=== PATIENT | female | born 1940 | race Caucasian/White ===

== ENCOUNTER → 2017-09-30 | Outpatient (CLI) | payer OTHER | END | disposition home or self-care (01) | LOC: CVU 09:30 → EDSTATUS 10:00 | PROVIDERS: ATTEND Internal Medicine Cardiovascular Disease | DX: I08.0 Rheumatic disorders of both mitral and aortic valves (principal) | CPT/HCPCS: 93306 ==

== ENCOUNTER → 2018-09-01 | Outpatient (CLI) | payer OTHER | END | disposition home or self-care (01) | LOC: CFH 14:55 | PROVIDERS: ATTEND Internal Medicine Cardiovascular Disease | DX: I34.8 Other nonrheumatic mitral valve disorders (principal); I35.8 Other nonrheumatic aortic valve disorders; Z87.891 Personal history of nicotine dependence | CPT/HCPCS: 93306 ==

== ENCOUNTER → 2020-09-25 | Outpatient (CLI) | payer OTHER | END | disposition home or self-care (01) | LOC: CFH 08:24 | PROVIDERS: ATTEND Internal Medicine Cardiovascular Disease | DX: I08.0 Rheumatic disorders of both mitral and aortic valves (principal) | CPT/HCPCS: 93306 ==

== ENCOUNTER 2020-12-12 10:33 | Day surgery (SDC) | payer OTHER ==
[~2020-12-12] VITALS: Ht 157.5 cm; Wt 59.1 kg
[2020-12-12] MEDS ORDERED: L.AC1CAP6 PO (11:01)
[2020-12-12 11:14] VITALS: BP 153/84
[2020-12-12] MEDS ORDERED: [UNRECOGNIZED DRUG - OTHER] OP (11:20)
[2020-12-12] MEDS ORDERED: collagen (11:20)
[2020-12-12] MEDS ORDERED: [UNRECOGNIZED DRUG - OTHER] PO (11:20)
[2020-12-12] MEDS ORDERED: Vitamin C PO (11:22)
[2020-12-12] MEDS ORDERED: LUTEIN PO (11:22)
[2020-12-12] MEDS ORDERED: [UNRECOGNIZED DRUG - OTHER] PO (11:22)
[2020-12-12] MEDS ORDERED: Collagen PO (11:22)
[2020-12-12] MEDS ORDERED: NAPR220C2 PO (11:22)
[2020-12-12] MEDS ORDERED: Vitamin B12 PO (11:23)
[2020-12-12 11:39] LABS: BASOPHILS % (AUTO) 1 % (0-1); EOSINOPHILS % (AUTO) 1 % (1-7); LYMPHOCYTES % (AUTO) 19 % (22-44); MEAN CORPUSCULAR HEMOGLOBIN 31.9 pg (27.0-34.8); MEAN CORPUSCULAR HGB CONC 34.3 g/dL (32.4-35.8); MEAN PLATELET VOLUME 7.8 fL (7.4-10.4); MONOCYTES % (AUTO) 7 % (2-9); NEUTROPHILS % (AUTO) 72 % (42-75); PLATELET COUNT 327 x10^3/uL (130-400); RED CELL DISTRIBUTION WIDTH 13.4 % (9.6-15.2)
[2020-12-12 11:48] LABS: MD NO
[2020-12-12 11:50] LABS: ANION GAP 7 mmol/L (5-15); CALCIUM 8.9 mg/dL (8.5-10.1); CHLORIDE 106 mmol/L (98-107)
[2020-12-12] MEDS ORDERED: MIDAZOLAM 1 MG/ML, 5ML ONE (11:55)
[2020-12-12] MEDS ORDERED: FENTANYL PF 100 MCG/2ML ONE (11:55)
[2020-12-12] MEDS ORDERED: VERAPAMIL 2.5 MG/ML, 2ML ONE (11:56)
[2020-12-12] MEDS ORDERED: BIVALIRUDIN 250 MG ONE (11:56)
[2020-12-12] MEDS ORDERED: HEPARIN 1,000 UNITS/ML, 10ML ONE (11:56)
[2020-12-12] MEDS ORDERED: LIDOCAINE-MPF 1%, 5ML ONE (11:56)
[2020-12-12] MEDS ORDERED: SODIUM CHLORIDE 0.9% 1,000 ML IV SCH (12:00)
== END 2020-12-12 16:49 | disposition home or self-care (01) ==
LOC: CACL 10:33
PROVIDERS: ATTEND Internal Medicine Cardiovascular Disease
DX: I35.0 Nonrheumatic aortic (valve) stenosis (principal); I25.10 Atherosclerotic heart disease of native coronary artery without angina pectoris; D47.3 Essential (hemorrhagic) thrombocythemia; Z79.899 Other long term (current) drug therapy
CPT/HCPCS: 36415; 80048; 85025; 93458; 99156; 99157; C1769; C1894; J1644; J2250; J3010; Q9967; J0583

== ENCOUNTER → 2021-01-10 | Outpatient (CLI) | payer OTHER ==
[~2021-01-10] MED LIST: Collagen PO; L.AC1CAP6 PO; LUTEIN PO; METOPROLOL 1 MG/ML, 5ML ONE; NAPR220C2 PO; VISIPAQUE 320 MG/ML, 150ML BOTTLE ONE; Vitamin B12 PO; Vitamin C PO; [UNRECOGNIZED DRUG - OTHER] OP; [UNRECOGNIZED DRUG - OTHER] PO; [UNRECOGNIZED DRUG - OTHER] PO; collagen
== END | disposition home or self-care (01) ==
LOC: CVU 09:35
PROVIDERS: ATTEND Internal Medicine Cardiovascular Disease
DX: Z01.810 Encounter for preprocedural cardiovascular examination (principal); I65.23 Occlusion and stenosis of bilateral carotid arteries; K57.30 Diverticulosis of large intestine without perforation or abscess without bleeding; I25.10 Atherosclerotic heart disease of native coronary artery without angina pectoris; R06.02 Shortness of breath; I35.0 Nonrheumatic aortic (valve) stenosis; J84.10 Pulmonary fibrosis, unspecified; I70.0 Atherosclerosis of aorta; Q25.46 Tortuous aortic arch
CPT/HCPCS: 71275; 74174; 93880; Q9967

== ENCOUNTER → 2021-02-01 | Outpatient (CLI) | payer OTHER ==
[~2021-02-01] MED LIST changes: -METOPROLOL 1 MG/ML, 5ML ONE; -VISIPAQUE 320 MG/ML, 150ML BOTTLE ONE
== END | disposition home or self-care (01) ==
LOC: STAR 09:23
PROVIDERS: ATTEND Anesthesiology
DX: Z20.822 Contact with and (suspected) exposure to COVID-19 (principal)
CPT/HCPCS: U0003

== ENCOUNTER 2021-02-06 11:15 | Inpatient (IN) | payer OTHER ==
[~2021-02-06] VITALS: Ht 157.5 cm; Wt 58.2 kg
[2021-02-06 11:52] VITALS: BP 149/81
[2021-02-06 12:18] LABS: BASOPHILS % (AUTO) 1 % (0-1); EOSINOPHILS % (AUTO) 2 % (1-7); LYMPHOCYTES % (AUTO) 16 % (22-44); MD NO; MEAN CORPUSCULAR HEMOGLOBIN 32.1 pg (27.0-34.8); MEAN CORPUSCULAR HGB CONC 33.9 g/dL (32.4-35.8); MEAN PLATELET VOLUME 7.6 fL (7.4-10.4); MONOCYTES % (AUTO) 7 % (2-9); NEUTROPHILS % (AUTO) 75 % (42-75); PLATELET COUNT 312 x10^3/uL (130-400); RED BLOOD COUNT 4.71 x10^6/uL (3.82-5.3); RED CELL DISTRIBUTION WIDTH 13.4 % (9.6-15.2)
[2021-02-06] MEDS ORDERED: BIVALIRUDIN 250 MG ONE (12:26)
[2021-02-06] MEDS ORDERED: TICAGRELOR 90 MG TABLET ONE (12:26)
[2021-02-06 12:27] LABS: ANION GAP 7 mmol/L (5-15); CHLORIDE 106 mmol/L (98-107); CREATININE 0.88 mg/dL (0.55-1.02)
[2021-02-06] MEDS ORDERED: LIDOCAINE 1%, 20ML ONE (12:27)
[2021-02-06] MEDS ORDERED: HEPARIN 1,000 UNITS/ML, 10ML ONE (12:27)
[2021-02-06] MEDS ORDERED: ASPIRIN 325 MG TABLET EC ONE (12:47)
[2021-02-06] MEDS ORDERED: PROPOFOL 50 ML ONE (12:47)
[2021-02-06] MEDS ORDERED: FENTANYL PF 250 MCG/5ML ONE (12:47)
[2021-02-06] MEDS ORDERED: ONDANSETRON 2MG/ML, 2ML ONE (13:44)
[2021-02-06] MEDS ORDERED: ROCURONIUM 10MG/ML,5ML ONE (13:44)
[2021-02-06] MEDS ORDERED: SUCCINYLCHOLINE 20 MG/ML, 10ML ONE (13:44)
[2021-02-06] MEDS ORDERED: BIVALIRUDIN 250 MG in SODIUM CHLORIDE 0.9% 50 ML IV SCH (15:30)
[2021-02-06] MEDS ORDERED: SODIUM CHLORIDE 0.9% 1,000 ML IV SCH (15:30)
[2021-02-06] MEDS ORDERED: NAPROXEN 250 MG TABLET PO PRN (15:30)
[2021-02-06] MEDS ORDERED: hydrALAzine 20 MG/ML, 1ML ONE (16:07)
[2021-02-06] MEDS ORDERED: hydrALAzine 20 MG/ML, 1ML IV PRN (16:30)
[2021-02-06 17:20] VITALS: BP 130/83
[2021-02-06 19:05] VITALS: BP 128/76
[2021-02-06] MEDS: TICAGRELOR 90 MG TABLET PO SCH (20:25)
[2021-02-06 21:41] LABS: TROPONIN I 0.784 ng/mL (0.000-0.045)
[2021-02-06 21:50] VITALS: BP 156/82
[2021-02-07 01:00] VITALS: BP 136/72
[2021-02-07 06:55] LABS: ANION GAP 8 mmol/L (5-15); CALCIUM 8.5 mg/dL (8.5-10.1); CHLORIDE 104 mmol/L (98-107); CREATININE 0.76 mg/dL (0.55-1.02)
[2021-02-07 07:05] VITALS: BP 145/70
[2021-02-07] MEDS: TICAGRELOR 90 MG TABLET PO SCH (08:52)
[2021-02-07] MEDS ORDERED: METOPROLOL SUCCINATE 25 MG TAB.ER.24H PO SCH (09:00)
[2021-02-07] MEDS ORDERED: ASPIRIN 81 MG TABLET EC PO SCH (09:00)
[2021-02-07] MEDS ORDERED: METO25TA91 PO (12:19)
[2021-02-07] MEDS ORDERED: ASPI81TA45 PO (12:19)
[2021-02-07] MEDS ORDERED: ATOR-2 PO (12:19)
[2021-02-07] MEDS ORDERED: TICA90TA PO (12:19)
[2021-02-07] MEDS ORDERED: ATORVASTATIN 80 MG TABLET PO SCH (21:00)
== END 2021-02-07 14:14 | disposition home or self-care (01) | DRG 215 ==
LOC: CACL 11:15 → ORIP 15:12 → 5SO 16:58 → DCLOUNGE 02-07 14:05
PROVIDERS: ADMIT Internal Medicine Cardiovascular Disease; ATTEND Internal Medicine Cardiovascular Disease
PROC: B2111ZZ Fluoroscopy of Multiple Coronary Arteries using Low Osmolar Contrast (ICD-10-PCS; 2021-02-06)
PROC: 02HA3RJ Insertion of Short-term External Heart Assist System into Heart, Intraoperative, Percutaneous Approach (ICD-10-PCS; 2021-02-06)
PROC: 5A0221D Assistance with Cardiac Output using Impeller Pump, Continuous (ICD-10-PCS; 2021-02-06)
PROC: B2131ZZ Fluoroscopy of Multiple Coronary Artery Bypass Grafts using Low Osmolar Contrast (ICD-10-PCS; 2021-02-06)
PROC: 027035Z Dilation of Coronary Artery, One Artery with Two Drug-eluting Intraluminal Devices, Percutaneous Approach (ICD-10-PCS; principal; 2021-02-06 13:30)
DX: I25.10 Atherosclerotic heart disease of native coronary artery without angina pectoris (principal); I50.30 Unspecified diastolic (congestive) heart failure; I35.0 Nonrheumatic aortic (valve) stenosis; S30.1XXA Contusion of abdominal wall, initial encounter; X58.XXXA Exposure to other specified factors, initial encounter; E78.5 Hyperlipidemia, unspecified; I11.0 Hypertensive heart disease with heart failure; Y93.89 Activity, other specified; Y92.89 Other specified places as the place of occurrence of the external cause; Y99.8 Other external cause status; Z95.1 Presence of aortocoronary bypass graft; Z95.2 Presence of prosthetic heart valve
CPT/HCPCS: 36415; J3490; 33990; 80048; 84484; 85025; 92978; 93005; 93454; C1753; C1760; C1769; C1894; C9600; G0378; J0583; J1644; J2405; J2704; J3010; C1725; C1874; C1887; J0330; J0360; Q9967

== ENCOUNTER 2021-02-20 08:18 | Inpatient (IN) | payer OTHER ==
[~2021-02-20] VITALS: Ht 157.5 cm; Wt 61.2 kg
[~2021-02-20 08:18] MED LIST changes: +ASPI81TA45 PO; +ATOR-2 PO; +METO25TA91 PO; +TICA90TA PO
[2021-02-20 08:50] VITALS: BP 136/77
[2021-02-20] MEDS ORDERED: SODIUM CHLORIDE 0.9% 1,000 ML IV ONE (09:00)
[2021-02-20] MEDS: PLEASE ENTER HEIGHT AND WEIGHT MC SCH ×3 (09:00→23:56)
[2021-02-20] MEDS ORDERED: ONDANSETRON 2MG/ML, 2ML IVPush PRN (09:00)
[2021-02-20 09:17] LABS: BASOPHILS % (AUTO) 1 % (0-1); EOSINOPHILS % (AUTO) 1 % (1-7); LYMPHOCYTES % (AUTO) 15 % (22-44); MEAN CORPUSCULAR HEMOGLOBIN 31.9 pg (27.0-34.8); MEAN PLATELET VOLUME 7.5 fL (7.4-10.4); MONOCYTES % (AUTO) 7 % (2-9); NEUTROPHILS % (AUTO) 77 % (42-75); PLATELET COUNT 420 x10^3/uL (130-400); RED BLOOD COUNT 4.62 x10^6/uL (3.82-5.3); RED CELL DISTRIBUTION WIDTH 13.4 % (9.6-15.2)
[2021-02-20 09:18] LABS: MD NO
[2021-02-20 09:22] LABS: ALANINE AMINOTRANSFERASE 42 U/L (12-78); ALBUMIN 4.2 g/dL (3.4-5.0); ANION GAP 7 mmol/L (5-15); CHLORIDE 103 mmol/L (98-107); CREATININE 0.89 mg/dL (0.55-1.02)
[2021-02-20 09:25] LABS: ALKALINE PHOSPHATASE 82 U/L (45-117); BILIRUBIN,TOTAL 0.7 mg/dL (0.2-1.0); TOTAL PROTEIN 7.5 g/dL (6.4-8.2)
[2021-02-20 09:37] LABS: INTERNATIONAL NORMALIZED RATIO 0.99 (0.93-1.1); PROTHROMBIN TIME 10.6 Seconds (9.6-11.5)
[2021-02-20] MEDS ORDERED: PROTAMINE SULFATE 10 MG/ML, 5ML ONE (10:45)
[2021-02-20] MEDS ORDERED: FENTANYL PF 100 MCG/2ML ONE (10:53)
[2021-02-20] MEDS ORDERED: LIDOCAINE-MPF 2% ,5ML ONE (11:22)
[2021-02-20] MEDS ORDERED: SUGAMMADEX 200 MG/2 ML IVPush ONE (11:22)
[2021-02-20] MEDS ORDERED: DEXAMETHASONE 4 MG/ML, 1ML ONE (11:24)
[2021-02-20] MEDS ORDERED: CEFAZOLIN 1,000 MG ONE (11:24)
[2021-02-20] MEDS ORDERED: PROPOFOL 10 MG/ML, 20ML ONE (11:24)
[2021-02-20] MEDS ORDERED: ONDANSETRON 2MG/ML, 2ML ONE (11:24)
[2021-02-20] MEDS ORDERED: SUCCINYLCHOLINE 20 MG/ML, 10ML ONE (11:24)
[2021-02-20] MEDS ORDERED: ROCURONIUM 10MG/ML,5ML ONE (11:24)
[2021-02-20] MEDS ORDERED: PHENYLEPHRINE 10 MG/ML ONE (11:47)
[2021-02-20] MEDS: ASPIRIN 81 MG TABLET EC PO SCH (12:30)
[2021-02-20] MEDS ORDERED: HYDROcodone/APAP 5/325 TABLET PO PRN (12:30)
[2021-02-20] MEDS ORDERED: LABETALOL 20 MG/4 ML IVPush PRN (12:30)
[2021-02-20] MEDS ORDERED: hydrALAzine 20 MG/ML, 1ML ONE (12:33)
[2021-02-20] MEDS: hydrALAzine 20 MG/ML, 1ML IVPush PRN ×2 (12:38→12:49)
[2021-02-20] MEDS ORDERED: MORPHINE SULFATE 4 MG/ML, 1ML ONE (12:55)
[2021-02-20] MEDS ORDERED: MORPHINE SULFATE 4 MG/ML, 1ML IVPush ONE (13:00)
[2021-02-20] MEDS ORDERED: HYDROcodone/APAP 5/325 TABLET ONE (13:14)
[2021-02-20 15:00] VITALS: BP 134/72
[2021-02-20] MEDS: ACETAMINOPHEN 325 MG TABLET PO PRN ×2 (17:07→21:23)
[2021-02-20] MEDS ORDERED: METOPROLOL SUCCINATE 25 MG TAB.ER.24H PO SCH (18:00)
[2021-02-20 20:33] VITALS: BP 128/70
[2021-02-20] MEDS: TICAGRELOR 90 MG TABLET PO SCH (20:52)
[2021-02-20] MEDS ORDERED: ATORVASTATIN 80 MG TABLET PO SCH (21:00)
[2021-02-21 00:08] VITALS: BP 126/69
[2021-02-21 05:35] LABS: BASOPHILS % (AUTO) 0 % (0-1); EOSINOPHILS % (AUTO) 0 % (1-7); LYMPHOCYTES % (AUTO) 7 % (22-44); MEAN CORPUSCULAR HEMOGLOBIN 31.4 pg (27.0-34.8); MEAN CORPUSCULAR HGB CONC 33.5 g/dL (32.4-35.8); MEAN PLATELET VOLUME 7.5 fL (7.4-10.4); MONOCYTES % (AUTO) 5 % (2-9); NEUTROPHILS % (AUTO) 88 % (42-75); PLATELET COUNT 368 x10^3/uL (130-400); RED BLOOD COUNT 4.16 x10^6/uL (3.82-5.3); RED CELL DISTRIBUTION WIDTH 13.5 % (9.6-15.2)
[2021-02-21 05:38] LABS: MD NO
[2021-02-21 05:50] LABS: ANION GAP 7 mmol/L (5-15); CALCIUM 8.6 mg/dL (8.5-10.1); CHLORIDE 105 mmol/L (98-107); CREATININE 0.85 mg/dL (0.55-1.02)
[2021-02-21] MEDS: PLEASE ENTER HEIGHT AND WEIGHT MC SCH (09:00)
[2021-02-21 09:15] VITALS: BP_SYST 129; BP_DIAS 7; BP_DIAS 72
[2021-02-21] MEDS: TICAGRELOR 90 MG TABLET PO SCH (09:18)
[2021-02-21] MEDS: ASPIRIN 81 MG TABLET EC PO SCH (09:18)
== END 2021-02-21 14:21 | disposition home or self-care (01) | DRG 266 ==
LOC: ORIP 08:18 → 5SO 15:04 → DCLOUNGE 02-21 13:55
PROVIDERS: ADMIT Internal Medicine Cardiovascular Disease; ATTEND Internal Medicine Cardiovascular Disease
PROC: B24BZZ4 Ultrasonography of Heart with Aorta, Transesophageal (ICD-10-PCS; 2021-02-20)
PROC: B3101ZZ Fluoroscopy of Thoracic Aorta using Low Osmolar Contrast (ICD-10-PCS; 2021-02-20)
PROC: 02RF38Z Replacement of Aortic Valve with Zooplastic Tissue, Percutaneous Approach (ICD-10-PCS; principal; 2021-02-20 10:30)
DX: I35.0 Nonrheumatic aortic (valve) stenosis (principal); I50.33 Acute on chronic diastolic (congestive) heart failure; I11.0 Hypertensive heart disease with heart failure; Z20.822 Contact with and (suspected) exposure to COVID-19; H35.30 Unspecified macular degeneration; E78.5 Hyperlipidemia, unspecified; Z00.6 Encounter for examination for normal comparison and control in clinical research program; Z79.899 Other long term (current) drug therapy
CPT/HCPCS: 33361; 36415; 76937; 80048; 80053; 85025; 85610; 86850; 86900; 86923; 87635; 93005; 93306; 93312; 93321; 93325; 93355; C1760; C1769; C1894; G0378; J0690; J1100; J2405; J2704; J2720; J3010; J0330; J0360; J2270; J2370; Q9967

== ENCOUNTER → 2021-03-16 | Outpatient (CLI) | payer OTHER | END | disposition home or self-care (01) | LOC: CVU 09:49 | PROVIDERS: ATTEND Internal Medicine Cardiovascular Disease | DX: Z01.810 Encounter for preprocedural cardiovascular examination (principal); I65.29 Occlusion and stenosis of unspecified carotid artery; I34.8 Other nonrheumatic mitral valve disorders; E78.5 Hyperlipidemia, unspecified; I25.10 Atherosclerotic heart disease of native coronary artery without angina pectoris; Z95.2 Presence of prosthetic heart valve | CPT/HCPCS: 93306 ==